=== PATIENT | male | born 2000 | race Caucasian/White ===

== ENCOUNTER 2021-05-09 18:47 | Emergency (ER) | payer BC, SELFPAY ==
--- NOTE | ~2021-05-09 | XR_ITS ---
EXAMINATION: XR chest 2V DATE: 05/09/2021 19:18 INDICATION: Anterior right upper chest pain. TECHNIQUE: PA and lateral views of the chest were obtained. COMPARISON: None FINDINGS: The lungs are clear with no focal airspace opacities, pulmonary edema, pleural effusion or pneumothor ax. The cardiomediastinal silhouette is normal. Visualized bones and soft tissues are unremarkable. IMPRESSION: 1. Normal chest radiograph. Reviewed, dictated and finalized at location A. F COUNSEL IMPRESSION: 1. Normal chest radiograph.
[2021-05-09 18:54] VITALS: BP 152/70; PULSE 62; RESP 16; TEMP 36.6; O2SAT 100
--- NOTE | 2021-05-09 18:57 | ED.GENADULT ---
HPI - General Adult General Chief complaint: Wound/Laceration Stated complaint: Chest injury and STD check Time Seen by Provider: 05/09/21 18:57 Mode of arrival: ambulatory Limitations: no limitations History of Present Illness HPI narrative: 21-year-old male presents with multiple concerns. He reports in 1 complaint he had unprotected sex with a partner who later told him she tested positive for herpes. He denies any lesions, dysuria, hematuria, frequency, urgency, penile discharge. He denies any other STI symptoms. In a second complaint he reports anterior right chest discomfort and corresponding back discomfort after being elbowed in the chest 1 week ago while playing soccer. Reports as he has been working out the pain has been worsening. Reports he has pain when moving his right arm in certain ways and when taking a deep breath. He reports the anterior chest is tender to touch. He denies any shortness of breath, palpitations, syncope. MD complaint: Chest injury Related Data Allergies Allergy/AdvReac Type Severity Reaction Status Date / Time Penicillins Allergy Mild Rash Unverified 05/09/21 18:58 Review of Systems Review of Systems: CONSTITUTIONAL: Denies malaise, chills, sweats, or fever. CARDIOVASCULAR: Denies chest pain, palpitations, or edema. RESPIRATORY: Denies cough or dyspnea. GENITOURINARY: Denies dysuria penile discharge, or hematuria. SKIN: Denies lesions, rash or itching. MUSCULOSKELETAL: Reports right anterior chest wall pain, radiating to the back All systems reviewed & are unremarkable except as noted in HPI and below PMFSH Comments At time of signature, agree with nursing past medical, surgical, social and family history. There is no relevant family history pertinent to the presenting complaint Exam Narrative: GENERAL: Well-appearing, well-nourished, and in no acute distress. HEAD: Normocephalic, atraumatic. EYES: PERRLA, sclera clear, and EOMI. ENT: Mucous membranes moist. NECK: Supple. CHEST: No respiratory distress. Clear to auscultation. No bony deformities, no asymmetry. Speaks in full sentences. HEART: Regular rate and rhythm. No murmur heard. Normal peripheral pulses. EXTREMITIES: Grossly normal range of motion. No edema. Grossly normal strength and sensation. SKIN: Warm, dry, no visible rash. No bruising, open skin noted to the chest, + tenderness upon palpation to the right of the upper sternum, no tenderness to clavicular palpation, no midline back tenderness. NEURO: Alert and oriented x3. PSYCH: Normal mood and affect Chest: Chest/axillae images: 1. Tenderness palpation without bruising, deformity, open skin Course Course Emergency Course: Discussed limited STI testing here, cannot test for herpes without active lesion. Patient given resources for STI testing Patient is aware of diagnosis, understands and agrees to treatment plan. Anticipatory guidance given. Patient agrees to follow-up as directed and is aware of reasons to seek care at the emergency department. Portions of this record may have been created with voice recognition software Level of Care: Express Care Visit Vital Signs Vital signs: Reviewed. Pt has been instructed to follow up with his primary care provider within the next week regarding his elevated blood pressure today. Medical Decision Making MDM Narrative Medical decision making narrative: Exam findings and imaging show no acute concerns or changes; patient is non-toxic appearing and is in no distress. Patient is appropriate for outpatient treatment and follow-up. Imaging Data My impression: Images reviewed, interpreted by radiologist, agree, see report. Radiologist's impression: EXAMINATION: XR chest 2V DATE: 05/09/2021 19:18 INDICATION: Anterior right upper chest pain. TECHNIQUE: PA and lateral views of the chest were obtained. COMPARISON: None FINDINGS: The lungs are clear with no focal airspace opacities, pulmonary edema, pleural effusion or pneumoth
== END 2021-05-09 19:37 | disposition home or self-care (01) ==
PROVIDERS: Emergency Provider Nurse Practitioner
DX: R07.89 Other chest pain (principal)
CPT/HCPCS: 71046; 99203; G0463

== ENCOUNTER 2021-05-23 10:01 | Emergency (ER) | payer BC, SELFPAY ==
--- NOTE | 2021-05-23 10:05 | ED.LOWEXIN ---
HPI - Extremity Injury (Lower) General Chief Complaint: Wound/Laceration Stated Complaint: Right big toe injury Time Seen by Provider: 05/23/21 10:05 Source: patient Mode of arrival: ambulatory Limitations: no limitations History of Present Illness HPI Narrative: Ryan is a 21-year-old male patient presenting to the clinic today with complaints of right great toe injury. He reports he injured his right great toe 2 days ago when playing soccer and he also dropped a weight on his toe. He denies any actual toe pain however he does have an avulsed great toenail that is partially attached to the lateral aspect of the toenail bed. He is questioning whether the toenail needs to be removed or is it safe to keep it intact. Has been applying tape over the toenail to keep it down and prevent it snagging on his socks. No bleeding or redness noted. Related Data Home Medications Medication Instructions Recorded Confirmed No Home Medications 05/23/21 05/23/21 Allergies Allergy/AdvReac Type Severity Reaction Status Date / Time Penicillins Allergy Mild Rash Unverified 05/23/21 10:10 Review of Systems Review of Systems: Pertinent positives per HPI. Patient denies any fever, chills, rash, headache, visual changes, dizziness, cough, runny nose, sore throat, shortness of breath, chest pain, palpitations, nausea, vomiting, diarrhea, constipation, abdominal pain, or any urinary issues. PMFSH Comments At the time of my signature, I reviewed and agree with the nursing past medical, surgical, social, and family history. There is no relevant family history pertinent to the patient complaint. Exam Narrative: General: Well-developed, well nourished, in no apparent distress Cardio: Regular rate and rhythm, s1 and s2 normal, no murmur appreciated. Resp: Clear to auscultation bilaterally, no rhonchi, rales, wheezing or rubs. Musculoskeletal: No deformity, non-tender to palpation of the right great toe, grossly normal range of motion, muscle strength strong and equal, pedal pulse strong, no edema, no cyanosis, normal gait and station, horizontally avulsed great toenail that is attached to the lateral proximal portion of the nailbed. No bleeding, bruising, redness, or discharge noted. Course Course Emergency Course: Portions of this record may have been created with voice recognition software. Level of Care: Express Care Visit Vital Signs Vital signs: Vital Signs Temperature 36.6 C 05/23/21 10:06 Pulse Rate 53 L 05/23/21 10:06 Respiratory Rate 12 05/23/21 10:06 Blood Pressure 132/70 05/23/21 10:06 Pulse Oximetry 100 05/23/21 10:06 Temperature 36.6 C 05/23/21 10:11 Pulse Rate 53 L 05/23/21 10:11 Respiratory Rate 12 05/23/21 10:11 Blood Pressure 132/70 05/23/21 10:11 Pulse Oximetry 100 05/23/21 10:11 Vital signs reviewed MDM - Extremity Injury (Lower) MDM Narrative Medical decision making narrative: At the time of visit patient has an horizontally avulsed great toenail that is partially intact to the nailbed. Recommend keeping down the nail to protect the nailbed. Watch for signs and symptoms of infection. New nail growth will dismount the broken toenail. Differential Diagnosis Differential diagnosis: Likely other (Toe fracture, toe infection, complete avulsion of toenail) Discharge Plan Discharge Clinical Impression: Avulsed toenail Qualifiers: Encounter type: initial encounter Qualified Code(s): S91.209A - Unspecified open wound of unspecified toe(s) with damage to nail, initial encounter Patient Disposition: Home, Self-Care Condition: Stable Instructions: Nail Avulsion (ED) Additional Instructions: Continue to tape toenail down to participate in sports. Toenail serves as a barrier to protect the nailbed-a new nail should grow and push the old toenail out Watch for signs and symptoms of infection such as redness, swelling, increasing pain, streaking, or purulent discharge Tylenol or M
[2021-05-23 10:06] VITALS: BP 132/70; PULSE 53; RESP 12; TEMP 36.6; O2SAT 100
[2021-05-23 10:11] VITALS: BP 132/70; PULSE 53; RESP 12; TEMP 36.6; O2SAT 100
== END 2021-05-23 10:26 | disposition home or self-care (01) ==
PROVIDERS: Emergency Provider Nurse Practitioner Family
DX: S91.201A Unspecified open wound of right great toe with damage to nail, initial encounter (principal); W20.8XXA Other cause of strike by thrown, projected or falling object, initial encounter
CPT/HCPCS: 99212; 99213; G0463

== ENCOUNTER 2022-01-01 12:45 | Emergency (ER) | payer BC, SELFPAY ==
--- NOTE | ~2022-01-01 | XR_ITS ---
XR heel RT min 2V 01/01/2022 13:40 INDICATION: Right heel pain PROCEDURE: 2 views right heel/os calcis COMPARISON: No prior studies for comparison. FINDINGS: Fracture, dislocation or subluxation is not identified. The soft tissues appear within norm al limits. No foreign bodies are identified. IMPRESSION: 1: NO ACUTE BONE OR JOINT ABNORMALITY IDENTIFIED. Reviewed, dictated and finalized at location A.
[2022-01-01 12:55] VITALS: BP 131/74; PULSE 70; RESP 20; TEMP 36.6; O2SAT 98
--- NOTE | 2022-01-01 12:58 | ED.LOWEXIN ---
HPI - Extremity Injury (Lower) General Chief Complaint: Extremity Injury, Lower Stated Complaint: rt foot/heel injury Time Seen by Provider: 01/01/22 12:58 Source: patient Mode of arrival: ambulatory Limitations: no limitations History of Present Illness HPI Narrative: 21 y/o male presented for c/o right heel pain and swelling after jumping over a couch last night. States he landed wrong. Endorses severe pain when walking, unable to bear weight on heel. Has not taken any medication or applied ice to the site. Denies numbness, tingling or weakness. Related Data Allergies Allergy/AdvReac Type Severity Reaction Status Date / Time Penicillins Allergy Mild Rash Unverified 05/23/21 10:10 Review of Systems Review of Systems: CONSTITUTIONAL: Denies body aches, fever, chills CARDIOVASCULAR: Denies chest pain, palpitations, or edema. RESPIRATORY: Denies cough or dyspnea. SKIN: Denies bruising MUSCULOSKELETAL:Reports right heel pain NEUROLOGIC: Denies headache, numbness, tingling, or weakness. All systems reviewed & are unremarkable except as noted in HPI and below PMFSH Comments At time of signature, I have reviewed and agree with nursing past medical, surgical, social and family history unless otherwise noted. Please see nursing chart for further information. There is no relevant family history pertinent to the presenting complaint Exam Narrative: GENERAL: Well-appearing CHEST: Speaks in full sentences. No respiratory distress. HEART: Regular rate and rhythm. Normal and equal peripheral pulses. EXTREMITIES: Right heel with moderate swelling and tenderness with palpation to lateral, medial, and plantar aspects of the heel; no apparent bruising; right foot has normal strength and sensation, normal range of motion at ankle. No open wounds, or obvious deformity; pulse palpable and equal bilaterally, skin warm, dry, pink. Capillary refill less than 3 seconds. Guarding with ambulation. SKIN: Warm, dry, extensive erythematous scaly rash to dorsal aspects of bilateral feet c/w eczema NEURO: Alert and oriented x3. Course Course Emergency Course: Patient is aware of diagnosis, understands and agrees to treatment plan. Anticipatory guidance given. Patient agrees to follow-up as directed and is aware of reasons to seek care at the emergency department. Portions of this record may have been created with voice recognition software Level of Care: Express Care Visit Vital Signs Vital signs: Vital Signs Temperature 97.8 F 01/01/22 12:55 Pulse Rate 70 01/01/22 12:55 Respiratory Rate 20 01/01/22 12:55 Blood Pressure 131/74 01/01/22 12:55 Pulse Oximetry 98 01/01/22 12:55 Temperature 97.8 F 01/01/22 12:55 Pulse Rate 70 01/01/22 12:55 Respiratory Rate 20 01/01/22 12:55 Blood Pressure 131/74 01/01/22 12:55 Pulse Oximetry 98 01/01/22 12:55 Reviewed MDM - Extremity Injury (Lower) MDM Narrative Medical decision making narrative: During exam, pt is found to have extensive eczematous rash to dorsal surface of both feet. States he has had it for years, often it weeps and he wakes in the night with severe itching causing bleeding. States he has never f/u and has not applied medication to the site. States he continues to play soccer and this irritates the sites. Agreeable to Rx cream. Unable to complete imaging at this facility. Patient would like to transfer to the [facility] for right heel xray and treatment as indicated. He is advised to go directly there. v/u. Report called to provider Laura Quinn NP. Result of xray negative, report reviewed with pt in [place]. TRENT wrap applied. Advised supportive treatments. Pt is appropriate for outpt treatment and f/u . Differential Diagnosis Differential diagnosis: Likely other (ankle fracture, heel fracture, heel contusion, heel sprain; dermatitis, eczema, psoriasis) Imaging Data Radiologist's impression: Patient: Criselda Julien : 2000 MR#: [id number]
--- NOTE | 2022-01-01 13:15 | PC.NURSE ---
Report called to Nita BENITEZ at [facility]. X-ray at [facility] is down.
--- NOTE | 2022-01-01 13:33 | PC.NURSE ---
1309- Nurse to nurse report received.
== END 2022-01-01 14:05 | disposition home or self-care (01) ==
PROVIDERS: Emergency Provider Nurse Practitioner Family
DX: M79.671 Pain in right foot (principal); L30.9 Dermatitis, unspecified
CPT/HCPCS: 73650; 99213; G0463